=== PATIENT | female | born 1985 | race Caucasian/White ===

== ENCOUNTER 2021-07-29 09:51 | Emergency (ER) | payer OTHER ==
[2021-07-29 10:25] LABS: BASOPHILS % (AUTO) 0.2 %; EOSINOPHILS % (AUTO) 0.1 %; HCT - HEMATOCRIT 48.1 % (37.0-47.0); HGB - HEMOGLOBIN 16.7 g/dL (12.0-16.0); LYMPHOCYTES # (AUTO) 1.6 10^3/uL (1.5-3.5); LYMPHOCYTES % (AUTO) 9.7 %; MEAN CORPUSCULAR HEMOGLOBIN 33.3 pg (27.0-31.0); MEAN CORPUSCULAR HGB CONC 34.7 g/dL (32.0-36.0); MEAN CORPUSCULAR VOLUME 95.8 fL (81.0-99.0); MEAN PLATELET VOLUME 9.2 fL (7.9-10.8); MONOCYTES # (AUTO) 0.9 10^3/uL (0.0-1.0); MONOCYTES % (AUTO) 5.4 %; NEUTROPHILS # (AUTO) 13.5 10^3/uL (1.5-6.6); NEUTROPHILS % (AUTO) 84.3 %; PLT - PLATELET COUNT 352 10^3/uL (130-450); RED BLOOD COUNT 5.02 10^6/uL (4.20-5.40); RED CELL DISTRIBUTION WIDTH 12.8 % (12.0-15.0)
[2021-07-29 10:39] LABS: ALBUMIN 5.4 g/dL (3.2-5.5); ALBUMIN/GLOBULIN RATIO 1.6 (1.0-2.2); BILIRUBIN,TOTAL 1.1 mg/dL (0.2-1.0); CALCIUM 10.1 mg/dL (8.5-10.3); CREATININE 0.8 mg/dL (0.4-1.0); POTASSIUM 3.5 mmol/L (3.5-5.0); TOTAL PROTEIN 8.8 g/dL (6.7-8.2)
[2021-07-29] MEDS ORDERED: SODIUM CHLORIDE 0.9% 1,000 ML IV STA ×2 (12:23→12:55)
[2021-07-29] MEDS ORDERED: ONDANSETRON 4 MG/2 ML VIAL IVP STA (12:24)
--- NOTE | 2021-07-29 12:25 | ED Physician Documentation ---
History of Present Illness - Stated complaint Stated Complaint: VOMITING/STOMACH PX - Chief complaint Chief Complaint: Abd Pain - Additonal information Additional information: 36-year-old female presents emergency department for evaluation of uncontrolled nausea vomiting and diarrhea that began about 8 PM last night. She states that she is vomiting every 15 to 20 minutes. States that she had similar about 1 month ago in [place] and was told she had food poisoning. [place] sick contacts here [place] No fevers. Past surgical history includes total abdominal hysterectomy. Review of Systems Constitutional: reports: Fever, Chills, Myalgias Eyes: reports: Reviewed and negative Ears: reports: Reviewed and negative Nose: reports: Reviewed and negative Throat: reports: Reviewed and negative Cardiac: reports: Reviewed and negative Respiratory: reports: Reviewed and negative GI: reports: Nausea, Vomiting, Diarrhea : denies: Dysuria, Frequency, Hesitancy Skin: reports: Reviewed and negative Musculoskeletal: reports: Reviewed and negative PD PAST MEDICAL HISTORY - Present Medications Home Medications: Ambulatory Orders Medication Instructions Recorded Confirmed Cetirizine [ZyrTEC] 10 mg PO DAILY 07/29/21 07/29/21 Fluticasone [Flonase] 1 sprays WILLOW DAILY 07/29/21 07/29/21 Ondansetron Odt [Zofran] 4 mg TL Q6H PRN #10 tablet 07/29/21 Sertraline [Zoloft] 50 mg PO DAILY 07/29/21 07/29/21 buPROPion [Wellbutrin Xl] 150 mg PO DAILY 07/29/21 07/29/21 - Allergies Allergies/Adverse Reactions: Allergies Allergy/AdvReac Type Severity Reaction Status Date / Time No Known Drug Allergies Allergy Verified 07/29/21 10:03 PD ED PE EXPANDED - General General: Alert, No acute distress - Cardiac Cardiac: Regular Rate, Radial strong equal, Pedal strong equal, Cap refill < 2 sec - Respiratory Respiratory: Clear to ausultation jessenia. No: Distress, Labored - Abdomen Abdomen: No: Tender to palpation - Derm Derm: Normal color, Warm and dry. No: Rash - Extremities Extremities: Normal. No: Deformity, Tenderness - Neuro Neuro: Alert and Oriented X 3, CNII-XII intact, Normal gait, Normal finger nose - GCS Eye Opening: Spontaneous Motor: Obeys Commands Verbal: Oriented Total: 15 Results - Vitals Vitals: Vital Signs - 24 hr 07/29/21 07/29/21 10:03 12:37 Temperature 36.4 C L Heart Rate 94 100 Respiratory 20 20 Rate Blood Pressure 182/107 H 166/112 H O2 Saturation 99 99 Oxygen O2 Source Room air - Labs Labs: Laboratory Tests 07/29/21 07/29/21 07/29/21 10:15 10:20 10:20 WBC 16.0 H RBC 5.02 Hgb 16.7 H Hct 48.1 H MCV 95.8 MCH 33.3 H MCHC 34.7 RDW 12.8 Plt Count 352 MPV 9.2 Neut # (Auto) 13.5 H Lymph # (Auto) 1.6 [place] # (Auto) 0.9 Eos # (Auto) 0.0 Baso # (Auto) 0.0 Absolute Nucleated RBC 0.00 Nucleated RBC % 0.0 Sodium 138 Potassium 3.5 Chloride 102 Carbon Dioxide 19 L Anion Gap 17.0 H BUN 11 Creatinine 0.8 Estimated GFR (MDRD) 81 L Glucose 153 H Calcium 10.1 Total Bilirubin 1.1 H AST 23 ALT 23 Alkaline Phosphatase 70 Total Protein 8.8 H Albumin 5.4 Globulin 3.4 Albumin/Globulin Ratio 1.6 Lipase 22 Urine Color YELLOW Urine Clarity CLOUDY Urine pH 6.0 Ur Specific [place] >=1.030 H Urine Protein >=300 H Urine Glucose (UA) NEGATIVE Urine Ketones >=80 H Urine Occult Blood MODERATE H Urine Nitrite NEGATIVE Urine Bilirubin NEGATIVE Urine Urobilinogen 0.2 (NORMAL) Ur Leukocyte Esterase NEGATIVE Urine RBC 11-25 H Urine WBC 4-5 Ur Squamous Epith Cells MOD Squamous H Urine Bacteria Many H Ur Microscopic Review INDICATED Urine Culture Comments NOT INDICATED PD MEDICAL DECISION MAKING - ED course Complexity details: reviewed results, re-evaluated patient, considered differential, d/w patient ED course: 36-year-old female presents emergency department for evaluation of uncontrolled nausea and vomiting that began about 8 PM last night. She also had associated diarrhea. Similar incident about 1 month ago in [place]. No possibility of as patient has previous hysterectomy. On exam the patient had a relatively benign abdominal exam with no focal tenderness elicited. Screening labs did show a moderate leukocytosis of 16,000 but patient has no fevers and again no abdominal pain. She was given 2 L of crystalloid as well as IV Zofran with marked improvement in her symptoms now tolerating p.o. liquids. We did discuss leukocytosis and though I did offer CT imaging she declined that at this time as her symptoms had improved. Her urine is grossly infected. She has no dysuria urgency or frequency therefore will defer any antibiotic treatment at this time. Patient will be discharged with prescription for Zofran. I suspect that this is likely a viral enteritis given recent travel. However symptoms do not improve she is to return to the ER for second evaluation. Departure - Departure Disposition: 01 Home, Self Care Clinical Impression: Nausea vomiting and diarrhea Elevated WBC count Qualifiers: Leukocytosis type: other Qualified Code(s): D72.828 - Other elevated white blood cell count Condition: Stable Record reviewed to determine appropriate education?: Yes Instructions: ED Diet Vomiting Diarrhea Prescriptions: Ondansetron Odt [Zofran] 4 mg TL Q6H PRN #10 tablet PRN Reason: Nausea / Vomiting Comments: Nicolasa jeffers were seen in the emergency department today for nausea vomiting and diarrhea that began yesterday evening. We did give you 2 L of IV fluids here in the ER as well as some Zofran with marked improvement in your symptoms. As we discussed you do have an elevated white blood cell count. However in suspected cases of gastroenteritis or the stomach flu this can be expected. We did not have significant tenderness when doing your abdominal exam and we discussed the possibility of CT imaging. However says your symptoms improved with fluids and Zofran this is being deferred at this time. I am sending a prescription to the [facility] in [place]. If over the next 24 to 48 hours her symptoms are not improving or they worsen then please return to the ER. I recommend clear liquids for the next 24 hours then slowly advance your diet with bananas, rice, applesauce and toast.
[2021-07-29 12:57] LABS: CLARITY,URINE CLOUDY (CLEAR); GLUCOSE, URINE (UA) NEGATIVE (NEGATIVE); KETONES,URINE (UA) >=80 mg/dL (NEGATIVE); LEUKOCYTE ESTERASE, URINE NEGATIVE (NEGATIVE); NITRITE,URINE NEGATIVE (NEGATIVE); OCCULT BLOOD,URINE MODERATE (NEGATIVE); PROTEIN,URINE >=300 mg/dL (NEGATIVE); UROBILINOGEN,URINE 0.2 (NORMAL) E.U./dL (NORMAL)
[2021-07-29 13:00] LABS: BILIRUBIN,URINE NEGATIVE (NEGATIVE); ICTOTEST,URINE NEGATIVE
[2021-07-29 13:01] LABS: BACTERIA,URINE Many /HPF (None Seen); SQUAMOUS EPITHELIAL CELL,UR MOD Squamous (<= Few)
[2021-07-29 13:55] VITALS: BP 130/79
== END 2021-07-29 14:26 | disposition home or self-care (01) ==
LOC: ED 09:51
DX: R11.2 Nausea with vomiting, unspecified (principal); R19.7 Diarrhea, unspecified; D72.828 Other elevated white blood cell count
CPT/HCPCS: 36415; 80053; 81001; 81003; 83690; 85025; 87086; 96361; 96374; 99284